=== PATIENT | male | born 1980 | race Caucasian/White ===

== ENCOUNTER 2016-12-06 08:17 | Day surgery (SDC) | payer BC ==
[2016-12-01 11:41] VITALS: BMI 25.8
[~2016-12-06 08:17] MED LIST: LACTATED RINGERS 1,000 ML IV SCH
[2016-12-06] MEDS ORDERED: LIDOCAINE 1% 20 ML VIAL (10MG/ML) FOR IV START SQ ONE (08:41)
[2016-12-06 08:49] VITALS: RESP 16; TEMP 97.3
[2016-12-06] MEDS ORDERED: fentaNYL (PF) 50 MCG/ML 2 ML AMP ONE (09:35)
[2016-12-06] MEDS ORDERED: METHOHEXITAL SODIUM 500 MG VIAL ONE (09:35)
[2016-12-06] MEDS ORDERED: GLYCOPYRROLATE 0.2 MG/ML 2 ML VIAL ONE (09:35)
[2016-12-06] MEDS ORDERED: MIDAZOLAM 2 MG/2 ML VIAL ONE (09:35)
[2016-12-06] MEDS ORDERED: LIDOCAINE 1% INJ 10MG/ML (20 ML MDV) ONE (09:35)
[2016-12-06] MEDS ORDERED: SODIUM CHLORIDE 0.9% 1,000 ML IV ONE (09:37)
--- NOTE | 2016-12-06 10:20 | P.PCN ---
Date of Procedure: 12/06/16 Procedure(s) Performed: Procedure: Esophagogastroduodenoscopy and biopsy. Preoperative diagnosis: History of eosinophilic esophagitis. Postoperative diagnosis: 1. Corrugated esophagus consistent with his endophytic esophagitis with improvement and inflammation previously described. 2. Small sliding hiatal hernia. 3. Mild antral gastritis. 4. Multiple biopsies obtained from the duodenum, antrum and esophagus. Preparation sedation were provided by anesthesia. Brief clinical history: The patient is a 55-year-old male with history of his endophytic esophagitis who is currently following a regimen of topical budesonide as well as on omeprazole with improvement, although not total, in his symptoms. His last exam was in July 2015. This evaluation is to assess for healing office esophagitis to guide therapy. Procedure: With the patient on his left lateral decubitus position and after informed consent and adequate sedation, I passed the Olympus-GIF 160 video upper endoscope through the cricopharyngeus down the esophagus. The esophagus appeared improved with no obvious linear erosions as previously noted, however, the corrugations consistent with his diagnosis were still evident but there were no strictures or any hindrance to the advancement of the endoscope. GE junction was around 40 cm from the incisors and there was a small sliding hiatal hernia. No Arana's esophagus or other pathology. The endoscope was then passed into the stomach which was insufflated with air and inspected in detail including the retroflex view in the cardia. Finally, the endoscope was passed through the pylorus into the duodenum. There was some mottling and erythema in the antrum but no ulcers or erosions. Pyloric channel, duodenal bulb, post bulbar area and descending duodenum appeared within normal limits. I obtained multiple biopsies from the duodenum, antrum and esophagus then the endoscope was withdrawn. The patient tolerated the procedure well. Plan: The patient was reassured. Will continue with the current regimen and await biopsy results. He will follow up with you as planned and I will keep you updated on his progress.
[2016-12-06 10:21] VITALS: BP 130/83; PULSE 84
== END 2016-12-06 10:43 | disposition home or self-care (01) ==
LOC: ORWHC2ENDO 08:17
DX: K20.0 Eosinophilic esophagitis (principal); R13.10 Dysphagia, unspecified; K21.0 Gastro-esophageal reflux disease with esophagitis; K29.50 Unspecified chronic gastritis without bleeding; K44.9 Diaphragmatic hernia without obstruction or gangrene; Z79.899 Other long term (current) drug therapy
CPT/HCPCS: 88305; 88342; 43239; J2250; J2001; J3010; 99153